=== PATIENT | male | born 1985 | race Caucasian/White ===

== ENCOUNTER 2020-08-09 02:15 | Emergency (ER) | payer OTHER, SELFPAY ==
[2020-08-09 02:20] VITALS: BP 132/77; PULSE 81; RESP 18; TEMP 36.6; O2SAT 98; BMI 25.9
--- NOTE | 2020-08-09 03:04 | ED.SKABFB ---
HPI - Skin/Abscess/Foreign Bdy General Chief complaint: Animal Bite Stated complaint: SPIDER BITE Time Seen by Provider: 08/09/20 02:52 Source: patient Mode of arrival: EMS Limitations: no limitations History of Present Illness HPI narrative: Patient homeless complaining of small cellulitic area on right leg thinks that had a spider bite few days ago which getting worse No fever no swelling of the leg except the area of questionable spider bite Related Data Previous Rx's Medication Instructions Recorded cephalexin [Keflex] 500 mg PO QID 10 Days #40 cap 08/09/20 doxycycline hyclate 100 mg PO BID #20 cap 08/09/20 Allergies Allergy/AdvReac Type Severity Reaction Status Date / Time aspirin Allergy Mild Unknown Verified 08/09/20 02:53 tramadol AdvReac Mild unknown Verified 08/09/20 02:53 Review of Systems Review of Systems: Yes all other systems are reviewed and are negative PMFSH Past Medical History Medical History Anxiety Depression Psychosis Social History Social History Advance Directives: No Advance Directives Information Provided: No Physical Exam Vital Signs: Vital Signs: Last Vital Signs Temp 97.9 F 08/09/20 02:20 Pulse 81 08/09/20 02:20 Resp 18 08/09/20 02:20 BP 132/77 08/09/20 02:20 Pulse Ox 98 08/09/20 02:20 Body Mass Index 25.9 Const: General: cooperative, healthy appearing and poor hygiene Orientation/consciousness: patient oriented x3 Resp: Effort & Inspection: normal respiratory effort Cardio: Rate: regular rate Neuro: General: patient oriented x3 and gait normal Extrem: Ankle/foot/toe images: 1. Cellulitic area with induration no fluctuance Course Course Course Narrative: Patient refuse I&D on the indurated area , refuse needle aspiration even. Will try to take antibiotics by mouth and report to the ER if gets worse Discharge Plan Discharge Clinical Impression: Insect bite Qualifiers: Encounter type: initial encounter Site of insect bite: lower leg Laterality: right Qualified Code(s): S80.861A - Insect bite (nonvenomous), right lower leg, initial encounter Patient Disposition: Home, Self-Care Instructions: Cellulitis (ED), Insect Bite or Sting (ED) Additional Instructions: Local care as advised. Take antibiotics as prescribed. Report to the ER worsening of the swelling or redness Prescriptions: New doxycycline hyclate 100 mg capsule 100 mg PO BID Qty: 20 RF: 0 cephalexin [Keflex] 500 mg capsule 500 mg PO QID 10 Days Qty: 40 RF: 0
== END 2020-08-09 03:15 | disposition home or self-care (01) ==
PROVIDERS: Emergency Provider Internal Medicine
DX: S80.861A Insect bite (nonvenomous), right lower leg, initial encounter (principal); W57.XXXA Bitten or stung by nonvenomous insect and other nonvenomous arthropods, initial encounter; L03.115 Cellulitis of right lower limb; Z59.0 Homelessness; Y93.9 Activity, unspecified; Y92.410 Unspecified street and highway as the place of occurrence of the external cause; Y99.9 Unspecified external cause status
CPT/HCPCS: 99283

== ENCOUNTER 2020-11-26 09:33 | Emergency (ER) | payer OTHER, SELFPAY ==
[2020-11-26 09:45] VITALS: RESP 22
[2020-11-26] MEDS: LORazepam 2 MG/ML VIAL IM (09:45)
[2020-11-26] MEDS: Haloperidol Lactate 5 MG/ML VIAL IM (09:45)
[2020-11-26 09:50] VITALS: RESP 22; BMI 29.1
[2020-11-26 10:00] VITALS: RESP 21
--- NOTE | 2020-11-26 10:00 | PC.NURSE ---
PT agitated upon arrival, uncooperative, threatening staff. Verbal deescalation ineffective. Provider in to speak with PT, PT continues to threaten staff. All attempts to deescalate patient were ineffective. Pt escalated further, pt placed in restraints, continues to scream and threaten staff.
[2020-11-26 10:15] VITALS: BP 131/82; PULSE 89; RESP 20; O2SAT 98
--- NOTE | 2020-11-26 10:23 | ECG_ITS ---
Test Reason : CARDIAC HISTORY Blood Pressure : / mmHG Vent. Rate : 087 BPM Atrial Rate : 087 BPM P-R Int : 128 ms QRS Dur : 082 ms QT Int : 376 ms P-R-T Axes : 049 082 060 degrees QTc Int : 452 ms Normal sinus rhythm Nonspecific ST-T changes Borderline ECG No previous ECGs available Referred By: Valentina Peña Electronically Signed By:Hugh Barnes
[2020-11-26 10:30] VITALS: BP 135/86; PULSE 89; RESP 16; O2SAT 97
[2020-11-26 10:45] VITALS: BP 137/87; PULSE 88; RESP 16; O2SAT 97
[2020-11-26 11:00] LABS: MANUAL DIFF FLAG NO
[2020-11-26 11:02] LABS: Basophils Percent Auto 0.3 % (0-2); Eosinophils Absolute Auto 0.1 X10*3/uL (0.0-0.4); Eosinophils Percent Auto 1.6 % (0-4); Hematocrit 40.8 % (42-52); Hemoglobin 13.3 g/dl (14.0-18.0); Imm Gran Abs Auto 0.02 X10*3/uL (0.00-0.03); Imm Gran Pct Auto 0.3 % (0.0-0.4); Lymphocytes Absolute Auto 1.7 X10*3/uL (1.2-4.9); Lymphocytes Percent Auto 24.6 % (20-40); Mean Corpuscular HGB Conc 32.6 g/dl (31.0-36.0); Mean Corpuscular Hemoglobin 28.9 pg (27.0-33.0); Mean Corpuscular Volume 88.7 fL (80-98); Mean Platelet Volume 8.8 fL (9.4-12.4); Monocytes Absolute Auto 0.6 X10*3/uL (0.1-1.2); Monocytes Percent Auto 8.7 % (2-11); Neutrophils Absolute Auto 4.5 X10*3/uL (2.0-8.3); Neutrophils Percent Auto 64.5 % (45-73); Platelet Count 280 X10*3/uL (160-400); Red Cell Distribution Width 13.2 % (11.0-16.0)
[2020-11-26 11:12] LABS: INTERNATIONAL NORM RATIO 1.1 (0.9-1.1); Prothrombin Time 12.6 SEC (10.8-13.0)
[2020-11-26 11:20] LABS: COVID-19 Test Negative (Negative); IDNOW Serial# 9DD0AD1C
[2020-11-26 11:29] LABS: Ethanol < 10 mg/dL
[2020-11-26 11:32] LABS: Magnesium 2.3 mg/dL (1.6-2.6)
[2020-11-26 11:33] LABS: Alanine Aminotransferase 338 U/L (0-40); Albumin Level 3.9 g/dL (3.5-5.0); Alkaline Phosphatase 79 U/L (39-117); Anion Gap 13 (12-20); Aspartate Amino Transferase 147 U/L (5-37); Bilirubin Total 0.5 mg/dL (0.0-1.0); Blood Urea Nitrogen 22 mg/dL (9-16); Calcium 8.9 mg/dL (8.4-10.2); Carbon Dioxide 29 mmol/L (22-29); Chloride 100 mmol/L (96-108); Creatinine Clr Calc Pharmacy 91.8; Estimated Glomerular Filt Rate > 60; Glucose Random 113 mg/dL (60-115); Lipase 24 U/L (8-78); Potassium 3.6 mmol/L (3.3-5.1); Sodium 138 mmol/L (135-145)
--- NOTE | 2020-11-26 12:43 | PC.NURSE ---
NEHEMIAS faxed and called, confirmed with Racquel
--- NOTE | 2020-11-26 13:32 | ED_ITS ---
HPI - Psych General Chief Complaint: Psychiatric Symptoms Stated Complaint: AGITATED CRISIS Time Seen by Provider: 11/26/20 09:52 Source: patient and EMS Mode of arrival: EMS Limitations: other (Poor historian) History of Present Illness HPI Narrative: 35-year-old male with a past medical history of anxiety disorder, depression, psychosis presenting to the ED via EMS after he was found outside of [facility] having an altercation with the staff there due to not wearing a mass therefore they called police and police on scene called EMS due to the patient was very aggressive. Patient was making SI statements. On arrival patient is very aggressive calling everyone names bitch stupid asshole , was trying to spit on some staff/security, demanding to be let out of here. He denies any drug usage although they found to needles in his belongings. He denies any alcohol usage. He reports he is not homeless that he lives with a friend and the friend's grandmother. Denying any SI/HI to me. Although he was speaking to Lucifer therefore possibly auditory and visual hallucinations. MD complaint: suicidal ideation, feels depressed and anxiety Onset (ago): minute(s) (Prior to arrival) Duration: constant Related Data Previous Rx's Medication Instructions Recorded cephalexin [Keflex] 500 mg PO QID 10 Days #40 cap 08/09/20 doxycycline hyclate 100 mg PO BID #20 cap 08/09/20 Allergies Allergy/AdvReac Type Severity Reaction Status Date / Time aspirin Allergy Mild Unknown Verified 08/09/20 02:53 tramadol AdvReac Mild unknown Verified 08/09/20 02:53 Review of Systems Review of Systems: Constitutional : No Fever, No Chills ENT/Mouth : No Ear Pain, No Nasal Congestion, No sore throat Eyes: No Eye Pain, No Swelling, No Redness Cardiovascular : No Chest Pain, No SOB Respiratory : No Cough, No Sputum, No Dyspnea Gastrointestinal : No ingestions, No Nausea, No Vomiting, No Diarrhea, No Hematochezia, No Melena Genitourinary : No Dysuria, No Urinary Frequency, No Hematuria Musculoskeletal : No Myalgias Skin : No Skin Lesions, No rash Neuro : No Weakness, No Numbness, No Paresthesias, No Dizziness, No Headache Psych : + Anxiety, + Depression, + SI, + AVH, No HI, No thoughts of self injury Heme/Lymph: No Lymphadenopathy Endocrine : No Polyuria, No Polydipsia Yes all other systems are reviewed and are negative FOR[facility]LY [facility], [facility] Past Medical History Attestation statement: The following information was validated with the patient. Medical History Anxiety Depression Psychosis Social History Social History Alcohol intake: unknown Smoking Status: Unknown if ever smoked Use of substances other than those prescribed or required for medical reasons: Refusing to respond Last Used Substance: Unknown Physical Exam Vital Signs: Vital Signs: Last Vital Signs Pulse 88 11/26/20 10:45 Resp 16 11/26/20 10:45 BP 137/87 11/26/20 10:45 Pulse Ox 97 11/26/20 10:45 Body Mass Index 29.1 vital signs have been reviewed as normal and appeared to be correct. Blood pressure normal. Heart rate normal. Respiration rate . Temperature normal. Oxygen saturation normal. Appearance: Alert. Oriented X3. No acute distress. Head: Normal external exam. Normocephalic. Atraumatic. No [place] signs noted. No raccoon eyes noted Eyes: PERRLA. EOMI. Conjunctiva and sclera normal. Eyelids normal. ENT: EAC normal. TM's Normal. Pharynx normal. Uvula midline. Moist mucous membranes. No trismus noted. No drooling noted. No muffled voice noted. Neck: Normal inspection. Neck supple. FROM. No adenopathy. Thyroid Normal. No meningeal signs. No neck mass noted. CVS: Normal heart rate and rhythm. Heart sound normal. No murmurs noted. Pulses normal throughout. Respiratory: No respiratory distress. Painless inspiration. Breath sounds normal. No wheezes/rales/rhonchi noted. Chest nontender. No accessory muscle usage noted or decreased air movement noted. Abdomen: Soft and nontender. Bowel sounds normal in all 4 quadrants. No distention noted. No organomegaly noted. No visible injury noted. Back: No CVA tenderness. Full range of motion noted. Skin: Track holt noted to right forearm no signs of infection the rest of the Skin is warm and dry. Normal skin color. Normal skin turgor. No rashes/lesions/lacerations noted. Extremities: No lower extremity edema. Extremities exhibit normal range of motion. Extremities nontender. Neuro: Oriented X 3. No motor deficit. No sensory deficit. Reflexes normal. Psych: Appearance grossly normal, although patient's clothes are dirty and odorous, has a normal mental status although has pressured speech. Normal movement. Patient appears very sad, anxious along with depressed. Is not cooperative. Does not have normal thought process/does not have normal thought content. Does not have good insight or judgment. Course Course Course Narrative: 12pm - labs reviewed and patient with a BUN of 22. AST/ALT at 147/338 otherwise all other labs are within normal limits. - COVID swab negative on 11/26/2020. - otherwise patient is medically cleared at this time. Physician observation was started at this time because the patient needed more time to be evaluated by N for the need for psychiatric admission. Will continue to monitor. MDM - Psych MDM Narrative Medical decision making narrative: 10am - 35-year-old male presenting via EMS/PD after he was found outside of [facility] having an altercation with the staff then he became aggressive with PD and EMS therefore they sent him here for further evaluation and treatment due to he was making SI statements to them. - on arrival patient is very aggressive trying to spit at staff/security. Not in any acute distress. No focal neuro deficits noted. Track holt noted to right forearm otherwise no signs of self-injury holt. Although patient appears to be having auditory/visual hallucinations. Therefore patient had to be medically and physically restrained. - Plan: Labs. Then obtain a N evaluation once medically cleared. Medical Records Attestation: I reviewed the patient's medical records. Lab Data Attestation: I reviewed the patient's lab results. Result diagrams: 11/26/20 10:54 11/26/20 10:54 Labs: Lab Results 11/26/20 11/26/20 11/26/20 Range/Units 10:54 10:54 10:54 WBC 7.0 (4.8-10.8) X10*3/uL RBC 4.60 (4.60-5.80) X10*6/uL Hgb 13.3 L (14.0-18.0) g/dl Hct 40.8 L (42-52) % MCV 88.7 (80-98) fL MCH 28.9 (27.0-33.0) pg MCHC 32.6 (31.0-36.0) g/dl RDW 13.2 (11.0-16.0) % Plt Count 280 (160-400) X10*3/uL MPV 8.8 L (9.4-12.4) fL Immature Gran % (Auto) 0.3 (0.0-0.4) % Neut % (Auto) 64.5 (45-73) % Lymph % (Auto) 24.6 (20-40) % [place] % (Auto) 8.7 (2-11) % Eos % (Auto) 1.6 (0-4) % Baso % (Auto) 0.3 (0-2) % Lymph # (Auto) 1.7 (1.2-4.9) X10*3/uL [place] # (Auto) 0.6 (0.1-1.2) X10*3/uL Eos # (Auto) 0.1 (0.0-0.4) X10*3/uL Baso # (Auto) 0.0 (0.0-0.2) X10*3/uL Abs Immat Gran (auto) 0.02 (0.00-0.03) X10*3/uL Absolute Neuts (auto) 4.5 (2.0-8.3) X10*3/uL Absolute Nucleated RBC 0.000 (0.0-0.012) X10*3/uL Nucleated RBC % (auto) 0.0 (0.0-0.2) /100WBC Hold Purple Top SEE NOTE PT 12.6 (10.8-13.0) SEC INR 1.1 (0.9-1.1) Sodium (135-145) mmol/L Potassium (3.3-5.1) mmol/L Chloride (96-108) mmol/L Carbon Dioxide (22-29) mmol/L Anion Gap (12-20) BUN (9-16) mg/dL Creatinine (0.5-1.4) mg/dL Estim Creat Clear Calc Estimated GFR Random Glucose (60-115) mg/dL Calcium (8.4-10.2) mg/dL Magnesium (1.6-2.6) mg/dL Total Bilirubin (0.0-1.0) mg/dL AST (5-37) U/L ALT (0-40) U/L Alkaline Phosphatase (39-117) U/L Total Protein (6.5-8.0) g/dL Albumin (3.5-5.0) g/dL Lipase (8-78) U/L Ethyl Alcohol mg/dL COVID-19 (TOO) (Negative) COVID-19 Clin Com 11/26/20 11/26/20 11/26/20 Range/Units 10:54 10:54 10:54 WBC (4.8-10.8) X10*3/uL RBC (4.60-5.80) X10*6/uL Hgb (14.0-18.0) g/dl Hct (42-52) % MCV (80-98) fL MCH (27.0-33.0) pg MCHC (31.0-36.0) g/dl RDW (11.0-16.0) % Plt Count (160-400) X10*3/uL MPV (9.4-12.4) fL Immature Gran % (Auto) (0.0-0.4) % Neut % (Auto) (45-73) % Lymph % (Auto) (20-40) % [place] % (Auto) (2-11) % Eos % (Auto) (0-4) % Baso % (Auto) (0-2) % Lymph # (Auto) (1.2-4.9) X10*3/uL [place] # (Auto) (0.1-1.2) X10*3/uL Eos # (Auto) (0.0-0.4) X10*3/uL Baso # (Auto) (0.0-0.2) X10*3/uL Abs Immat Gran (auto) (0.00-0.03) X10*3/uL Absolute Neuts (auto) (2.0-8.3) X10*3/uL Absolute Nucleated RBC (0.0-0.012) X10*3/uL Nucleated RBC % (auto) (0.0-0.2) /100WBC Hold Purple Top PT (10.8-13.0) SEC INR (0.9-1.1) Sodium 138 (135-145) mmol/L Potassium 3.6 (3.3-5.1) mmol/L Chloride 100 (96-108) mmol/L Carbon Dioxide 29 (22-29) mmol/L Anion Gap 13 (12-20) BUN 22 H (9-16) mg/dL Creatinine 1.10 (0.5-1.4) mg/dL Estim Creat Clear Calc 91.8 Estimated GFR > 60 Random Glucose 113 (60-115) mg/dL Calcium 8.9 (8.4-10.2) mg/dL Magnesium 2.3 (1.6-2.6) mg/dL Total Bilirubin 0.5 (0.0-1.0) mg/dL AST 147 H (5-37) U/L ALT 338 H (0-40) U/L Alkaline Phosphatase 79 (39-117) U/L Total Protein 7.0 (6.5-8.0) g/dL Albumin 3.9 (3.5-5.0) g/dL Lipase 24 (8-78) U/L Ethyl Alcohol mg/dL COVID-19 (TOO) Negative (Negative) COVID-19 Clin Com See Note 11/26/20 Range/Units 10:54 WBC (4.8-10.8) X10*3/uL RBC (4.60-5.80) X10*6/uL Hgb (14.0-18.0) g/dl Hct (42-52) % MCV (80-98) fL MCH (27.0-33.0) pg MCHC (31.0-36.0) g/dl RDW (11.0-16.0) % Plt Count (160-400) X10*3/uL MPV (9.4-12.4) fL Immature Gran % (Auto) (0.0-0.4) % Neut % (Auto) (45-73) % Lymph % (Auto) (20-40) % [place] % (Auto) (2-11) % Eos % (Auto) (0-4) % Baso % (Auto) (0-2) % Lymph # (Auto) (1.2-4.9) X10*3/uL [place] # (Auto) (0.1-1.2) X10*3/uL Eos # (Auto) (0.0-0.4) X10*3/uL Baso # (Auto) (0.0-0.2) X10*3/uL Abs Immat Gran (auto) (0.00-0.03) X10*3/uL Absolute Neuts (auto) (2.0-8.3) X10*3/uL Absolute Nucleated RBC (0.0-0.012) X10*3/uL Nucleated RBC % (auto) (0.0-0.2) /100WBC Hold Purple Top PT (10.8-13.0) SEC INR (0.9-1.1) Sodium (135-145) mmol/L Potassium (3.3-5.1) mmol/L Chloride (96-108) mmol/L Carbon Dioxide (22-29) mmol/L Anion Gap (12-20) BUN (9-16) mg/dL Creatinine (0.5-1.4) mg/dL Estim Creat Clear Calc Estimated GFR Random Glucose (60-115) mg/dL Calcium (8.4-10.2) mg/dL Magnesium (1.6-2.6) mg/dL Total Bilirubin (0.0-1.0) mg/dL AST (5-37) U/L ALT (0-40) U/L Alkaline Phosphatase (39-117) U/L Total Protein (6.5-8.0) g/dL Albumin (3.5-5.0) g/dL Lipase (8-78) U/L Ethyl Alcohol < 10 mg/dL COVID-19 (TOO) (Negative) COVID-19 Clin Com ECG Data Attestation: I personally reviewed and interpreted this ECG as follows: ECG interpretation date: 11/26/20 ECG interpretation time: 10:42 Interpretation: Normal sinus rhythm and strictly rate of 87 with a normal NE interval normal QRS duration normal QT/QTC interval. No acute ischemic changes are noted. Discharge Plan Discharge Clinical Impression: Anxiety, Depression, Psychosis, Suicidal ideation Prescriptions: No Action doxycycline hyclate 100 mg capsule 100 mg PO BID Qty: 20 RF: 0 cephalexin [Keflex] 500 mg capsule 500 mg PO QID 10 Days Qty: 40 RF: 0
--- NOTE | 2020-11-27 02:06 | PC.NURSE ---
NEHEMIAS completed assessment, disposition is section 12 inpatient bed search for stabilization, patient and provider aware,
[2020-11-27 04:52] LABS: Glucose Urine UA NEG (NEG); Leukocyte Esterase Urine NEG (NEG); Nitrite Urine NEG (NEG); PH 7.5 (5.0-8.0); Urine Blood NEG (NEG); Urine Ketones NEG (NEG); Urine Protein NEG (NEG-TRACE)
[2020-11-27 04:53] LABS: Appearance Urine HAZY; Color Urine YELLOW
[2020-11-27 05:17] LABS: Amphetamine Screen Urine Not Detected (Not Detect); Barbiturates, Urine Not Detected (Not Detect); Benzodiazepines Screen Urine Not Detected (Not Detect); Cannabinoid Screen Urine Not Detected (Not Detect); Cocaine Screen Urine POSITIVE (Not Detect); Opiate Screen Urine POSITIVE (Not Detect); Phencyclidine Screen Urine Not Detected (Not Detect)
[2020-11-27 06:00] VITALS: BP 129/88; PULSE 89; RESP 18; TEMP 37.1; O2SAT 96
[2020-11-27 09:02] VITALS: BP 119/90; PULSE 91; TEMP 36.6; O2SAT 98
[2020-11-27] MEDS: LORazepam 1 MG TABLET PO ×4 (09:50→20:48)
--- NOTE | 2020-11-27 10:59 | PC.NURSE ---
Report received. Pt resting in bed at current, no complaints at this time, calm and cooperative, continues to be a section 12 bed search
--- NOTE | 2020-11-27 11:06 | P.CNPS_ITS ---
History of Present Illness Date of Service: 11/27/20 Chief Complaint: aggressive agitation; opiate/cocaine abuse Requesting physician: Andre Magaña Discussed with referring provider: Yes (ER POD Team) Sources of Information: patient interviewed and chart reviewed HPI Narrative: 35 yo male, to ER via police after being found in the community at a local store having an altercation about wearing a mask. He became verbally and physically aggressive with police, needles were found on his person and he was observed to be self-dialoguing with Lucifer. Pt required physical and medication restraint in the ER. Today, team requests medication review. Pt is cooperative with eval but a vague, weak historian. He reports he was brought in for doing nothing . Discussed crisis eval and bed search for pt and he could not further elaborate on what happened, Reviewed medication history. Reports hx of anxiety, depression (denies psychosis however record indicates a positive history). Reports off medications for over 1 year. Denies hx of martín, denies voices, visions or other perceptual sx. Denies fears or concerns regarding safety. Acknowledges SI-passive without plan or intent and acknowledges some loss of time last evening with memory (tox positive for opiates, cocaine). Reports hx of Seroquel, Xanax, Klonopin. Denies other medications history. Diagnostics HGB 12.3, HCT 40.8, MPV 8.8 BUN 22, AST 147, ALT 338, EKG Borderline with QTc 452. Past Psychiatric History: IP: Denies OP: Denies current alliances Trials: Klonopin, Seroquel, xanax Medical Evaluation Reviewed: Yes Personal & Social History: Pt reports he is homeless, currently not working. 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.) Reports behavioral changes Psychiatric: Reports behavioral changes, Reports irritability, Reports mood swings, Reports paranoia, Reports hallucinations and Reports suicidal ideation (positive on admission, denies current SI) [facility] Medical History (Updated 11/27/20 @ 11:35 by Jaquelin Siddiqui, [place]) Anxiety Depression Psychosis Substance History: Denies- Tox positive for opiates, cocaine Diagnostics Vital Signs (24Hr): Vital Signs - 24 hr 11/27/20 06:00 11/27/20 09:02 Temperature 98.8 F 97.9 F Pulse Rate 89 91 Respiratory Rate 18 Blood Pressure 129/88 119/90 H Pulse Oximetry 96 98 Body Mass Index 29.1 Labs Results: 11/26/20 10:54 11/26/20 10:54 Labs: Laboratory Results - last 48 hr 11/26/20 11/26/20 11/26/20 10:54 10:54 10:54 WBC 7.0 RBC 4.60 Hgb 13.3 L Hct 40.8 L MCV 88.7 MCH 28.9 MCHC 32.6 RDW 13.2 Plt Count 280 MPV 8.8 L Immature Gran % (Auto) 0.3 Neut % (Auto) 64.5 Lymph % (Auto) 24.6 [place] % (Auto) 8.7 Eos % (Auto) 1.6 Baso % (Auto) 0.3 Lymph # (Auto) 1.7 [place] # (Auto) 0.6 Eos # (Auto) 0.1 Baso # (Auto) 0.0 Abs Immat Gran (auto) 0.02 Absolute Neuts (auto) 4.5 Absolute Nucleated RBC 0.000 Nucleated RBC % (auto) 0.0 Hold Purple Top SEE NOTE PT 12.6 INR 1.1 Sodium Potassium Chloride Carbon Dioxide Anion Gap BUN Creatinine Estim Creat Clear Calc Estimated GFR Random Glucose Calcium Magnesium Total Bilirubin AST ALT Alkaline Phosphatase Total Protein Albumin Lipase Urine Color Urine Appearance Urine pH Ur Specific [place] Urine Protein Urine Glucose (UA) Urine Ketones Urine Blood Urine Nitrite Ur Leukocyte Esterase Urine Opiates Screen Ur Barbiturates Screen Ur Phencyclidine Scrn Ur Amphetamines Screen U Benzodiazepines Scrn Urine Cocaine Screen U Marijuana (THC) Screen Ethyl Alcohol COVID-19 (TOO) COVID-19 Clin Com 11/26/20 11/26/20 11/26/20 10:54 10:54 10:54 WBC RBC Hgb Hct MCV MCH MCHC RDW Plt Count MPV Immature Gran % (Auto) Neut % (Auto) Lymph % (Auto) [place] % (Auto) Eos % (Auto) Baso % (Auto) Lymph # (Auto) [place] # (Auto) Eos # (Auto) Baso # (Auto) Abs Immat Gran (auto) Absolute Neuts (auto) Absolute Nucleated RBC Nucleated RBC % (auto) Hold Purple Top PT INR Sodium 138 Potassium 3.6 Chloride 100 Carbon Dioxide 29 Anion Gap 13 BUN 22 H Creatinine 1.10 Estim Creat Clear Calc 91.8 Estimated GFR > 60 Random Glucose 113 Calcium 8.9 Magnesium 2.3 Total Bilirubin 0.5 AST 147 H ALT 338 H Alkaline Phosphatase 79 Total Protein 7.0 Albumin 3.9 Lipase 24 Urine Color Urine Appearance Urine pH Ur Specific [place] Urine Protein Urine Glucose (UA) Urine Ketones Urine Blood Urine Nitrite Ur Leukocyte Esterase Urine Opiates Screen Ur Barbiturates Screen Ur Phencyclidine Scrn Ur Amphetamines Screen U Benzodiazepines Scrn Urine Cocaine Screen U Marijuana (THC) Screen Ethyl Alcohol COVID-19 (TOO) Negative COVID-19 Clin Com See Note 11/26/20 11/27/20 11/27/20 10:54 04:42 04:42 WBC RBC Hgb Hct MCV MCH MCHC RDW Plt Count MPV Immature Gran % (Auto) Neut % (Auto) Lymph % (Auto) [place] % (Auto) Eos % (Auto) Baso % (Auto) Lymph # (Auto) [place] # (Auto) Eos # (Auto) Baso # (Auto) Abs Immat Gran (auto) Absolute Neuts (auto) Absolute Nucleated RBC Nucleated RBC % (auto) Hold Purple Top PT INR Sodium Potassium Chloride Carbon Dioxide Anion Gap BUN Creatinine Estim Creat Clear Calc Estimated GFR Random Glucose Calcium Magnesium Total Bilirubin AST ALT Alkaline Phosphatase Total Protein Albumin Lipase Urine Color YELLOW Urine Appearance HAZY Urine pH 7.5 Ur Specific [place] 1.020 Urine Protein NEG Urine Glucose (UA) NEG Urine Ketones NEG Urine Blood NEG Urine Nitrite NEG Ur Leukocyte Esterase NEG Urine Opiates Screen POSITIVE H Ur Barbiturates Screen Not Detected Ur Phencyclidine Scrn Not Detected Ur Amphetamines Screen Not Detected U Benzodiazepines Scrn Not Detected Urine Cocaine Screen POSITIVE H U Marijuana (THC) Screen Not Detected Ethyl Alcohol < 10 COVID-19 (TOO) COVID-19 Clin Com Mental Status Exam Mental Status Exam Patient Appearance: Disheveled Patient Orientation: Person, Place and Situation Level of Consciousness: Alert Patient Behavior: Guarded, Talkative, Cooperative, Suspicious, Anxious, Fearful, Resistive to Care, Avoidant, Fatigued, Distractible, Isolative, Good Eye Contact and Impulsive Mood Description: Suspicious, Withdrawn, Constricted, Hostile, Angry and Apprehensive Affect Description: Suspicious, Withdrawn, Constricted, Hostile, Anxious, Angry, Nervous and Apprehensive Patient Cognition Impaired: No Ability to Follow Directions: Fair Speech Pattern: Spontaneous Speech, Soft-Spoken and Delayed Memory Description: Episodic Impaired Hallucinations: Auditory (denies-observed in community self-dialogueing with Lucifer) Thought Process: Illogical and Evasive Thought Content: positive for [place], positive for Circumstantial, positive for Poverty of Content, positive for Tangential and positive for Suicidal Ideation (denies currently, verbalized in community) Depressive Symptoms: Diff. Making Decisions, Crying Spells, Thoughts of /Suicide and Loss of Energy Judgement: Poor Medications Allergies Allergies Allergy/AdvReac Type Severity Reaction Status Date / Time aspirin Allergy Mild Unknown Verified 08/09/20 02:53 tramadol AdvReac Mild unknown Verified 08/09/20 02:53 Assessment & Plan Assessment & Plan (1) Opioid use disorder: Status: Acute Code(s): F11.99 - Opioid use, unspecified with unspecified opioid-induced disorder Recommendations: Tox positive. CIWA Pt reports inconsistent use (2) Cocaine use disorder: Status: Acute Code(s): F14.10 - Cocaine abuse, uncomplicated Recommendations: Tox positive Pt reports inconsistent use May have contributed to presenting behavior. (3) Other psychoactive substance use, unspecified with psychoactive substance- induced mood disorder: Status: Acute Code(s): F19.94 - Other psychoactive substance use, unspecified with psychoactive substance-induced mood disorder Recommendations: Pt required physical and medication restraint in the ER. 1. Ativan 1 mg q 4 hours as needed 2. Olanzapine 5 mg bid 3. Depakote 250 mg bid (4) LFT elevation: Status: Acute Code(s): R79.89 - Other specified abnormal findings of blood chemistry Recommendations: AST 147 ALT 338 Amylase, Lipase, Hepatitis panel (5) Suicidal ideation: Status: Acute Code(s): R45.851 - Suicidal ideations Recommendations: Pt verbalized SI on admission, Today denies SI, denies plan or intent (6) Psychosis: Status: Acute Code(s): F29 - Unspecified psychosis not due to a substance or known physiological condition Recommendations: -Self-dialogue sx in community, required physical and medicine restraint -Olanzapine 5 mg bid and prn Greater than 50% of the session was spent on counseling and/or coordination of care Patient educated on: substance abuse and therapeutic strategies Informed Consent: understands and further education needed
--- NOTE | 2020-11-27 12:02 | PC.NURSE ---
Refused scheduled doses of depakote and zyprexa, only wanted PRN ativan, which was given as ordered. Pt requesting subutex for body ache r/t withdrawal. Scoring 2 on the COWS.
[2020-11-27 13:46] LABS: Amylase 32 U/L (28-100)
--- NOTE | 2020-11-27 16:16 | PC.NURSE ---
Pt asleep at current, no signs of distress, RR even and unlabored.
[2020-11-27 16:48] VITALS: BP 134/85; PULSE 111; RESP 20; TEMP 37.3; O2SAT 98
--- NOTE | 2020-11-27 18:15 | PC.NURSE ---
Pt resting comfortably at this time, no signs of distress.
--- NOTE | 2020-11-27 19:13 | PC.NURSE ---
Report received. PT is sleeping in bed. Respirations even and unlabored. PT is inpatient bed search.
[2020-11-27 20:48] VITALS: BP 134/86; PULSE 119
[2020-11-27] MEDS: Divalproex Sodium 250 MG TABLET.DR PO (20:48)
[2020-11-27] MEDS: OLANZapine 5 MG TABLET PO (20:48)
[2020-11-27] MEDS: cloNIDine HCL 0.1 MG TABLET PO (20:48)
[2020-11-28] VITALS (12 sets, daily range): BP systolic 136–147; BP diastolic 93–108; PULSE 86–110; RESP 16–22; TEMP 35.9–36.9; O2SAT 92–100
[2020-11-28 05:02] LABS: HBS Num1 > 1000.00 mIU/mL (0-7.99); HBc Num1 0.51 S/CO (0.00-0.79); Hepatitis A Antibody IgM 0.24 Index (0-0.79); Hepatitis B Core Antibody Nonreactive (Nonreactive); ~HepC Num1 17.27 S/CO (0.00-0.79); ~Hepatitis A Antibody IgM Nonreactive (Nonreactive); ~Hepatitis B Surface Antibody REACTIVE (Nonreactive); ~Hepatitis C Antibody Reactive (Nonreactive)
[2020-11-28 05:03] LABS: HBsAGNum1 0.13 S/CO (0.00-0.99); Hepatitis B Surface Antigen Negative (Negative)
--- NOTE | 2020-11-28 06:58 | PC.NURSE ---
Report recieved. PT currently walking around unit, social with peers, calm and coopertive. PT reporting that the ativan dose he is on is not helping, requesting increased dose or klonopin. Pt asking about plan of care, plan explained, pt is inpatient bedsearch.
[2020-11-28] MEDS: LORazepam 1 MG TABLET PO (07:51)
--- NOTE | 2020-11-28 08:51 | PC.NURSE ---
PT declined AM medications states they make his drowsy, states he would be willing to take his medications at night.
[2020-11-28] MEDS: clonazePAM 1 MG TABLET PO ×3 (09:33→21:41)
--- NOTE | 2020-11-28 09:52 | PC.NURSE ---
PT reported blurry vision and double vision. Provider notified. Visual acuity assessed and POC assessed. Provider aware.
[2020-11-28 09:55] LABS: Glucose, Whole Blood 118 mg/dL (60-115)
--- NOTE | 2020-11-28 12:14 | PC.NURSE ---
PT irritable, requesting to leave frequently, asking to go outside to smoke frequently. PT difficult to redirect, offered and declined PRN medication. Currently laying in bed.
--- NOTE | 2020-11-28 13:37 | PC.NURSE ---
PT agitated, pacing and raising his voice at times. Difficult to redirect. Pt offered and declined PRN medication. PT currently sitting on floor in community area.
--- NOTE | 2020-11-28 14:11 | PC.NURSE ---
PT screaming and swearing at staff. Verbal redirection ineffective. PT intrusive with other patients, demanding medication. PT asking to go into his locker, states he just wants a cigarette. Security on unit.
[2020-11-28] MEDS: OLANZapine 10 MG VIAL 5 MG IM (14:22)
--- NOTE | 2020-11-28 14:26 | PC.NURSE ---
PT continued yelling at staff, threatening, growling. PT escorted to his room, unable to verbally deescalate. PT medicated per EMAR.
[2020-11-28] MEDS: Nicotine 14 MG PATCH.TD24 TRANSDERMA (15:28)
--- NOTE | 2020-11-28 17:01 | PC.NURSE ---
BHN at bedside for MSU
[2020-11-28] MEDS: LORazepam 2 MG/ML VIAL IM (19:40)
[2020-11-28] MEDS: Haloperidol Lactate 5 MG/ML VIAL IM (19:41)
--- NOTE | 2020-11-28 19:48 | PC.NURSE ---
Per report patient was chemically restraint with olanzapine with not much effect, patient loud, disruptive, threatening staff member, manic, difficult to redirect, verbally abusive to staff member, grandiose, provider notified/ordered Ativan 2 mg IM and Haldol 5 mg IM administered at 1941 in presence of security, patient did not require to hold for IM administration, patient continuos to be loud, refused his vital sign assessment, will continue to monitor.
--- NOTE | 2020-11-28 20:37 | PC.NURSE ---
Patient s/p chemical restraint, appears sleeping, night time med not administered at this time, will continue to monitor.
[2020-11-28] MEDS: OLANZapine 5 MG TABLET PO (20:56)
[2020-11-28] MEDS: Divalproex Sodium 250 MG TABLET.DR PO (20:56)
[2020-11-29] VITALS (8 sets, daily range): BP systolic 119–142; BP diastolic 74–101; PULSE 75–109; RESP 17–20; TEMP 36.6–37.2; O2SAT 97–99
--- NOTE | 2020-11-29 07:11 | PC.NURSE ---
Report received from YAMEL Powell. Pt awake, alert, no concerns reported at this time. Pt using telephone. Required reminder to keep voice down, redirectable.
[2020-11-29] MEDS: Divalproex Sodium 250 MG TABLET.DR PO ×2 (07:28→20:06)
[2020-11-29] MEDS: OLANZapine 5 MG TABLET PO ×2 (07:32→20:06)
[2020-11-29] MEDS: clonazePAM 1 MG TABLET PO ×3 (07:33→17:28)
--- NOTE | 2020-11-29 07:37 | PC.NURSE ---
Pt awake, loud at times, initially declining medications but then accepted. Pt requesting adderall frequently, pt then requesting suboxone. Pt aware that only MD can prescribe and redirected.
--- NOTE | 2020-11-29 08:59 | PC.NURSE ---
Pt continues to be intrusive, requesting ativan, valium, adderall. Reviewed all options with provider. Pt offered zyprexa as PRN for agitation and declined. Pt declining tylenol, motrin for aching, states he only wants xanax or valium.
[2020-11-29] MEDS: cloNIDine HCL 0.1 MG TABLET PO (09:08)
--- NOTE | 2020-11-29 09:10 | PC.NURSE ---
Pt reporting withdrawal symptoms of aching= back ache. Pt declining tylenol or ibuprofen but accepted clonidine.
--- NOTE | 2020-11-29 10:28 | PC.NURSE ---
Pt continues to be intrusive, requiring frequent redirection which he accepts w/ delay.
[2020-11-29] MEDS: Acetaminophen 325 MG TABLET 650 MG PO (11:40)
--- NOTE | 2020-11-29 12:13 | PC.NURSE ---
Report received. Pt currently watching TV in the common area. Calm, no complaints at this time.
--- NOTE | 2020-11-29 15:14 | PC.NURSE ---
Demanding adderall and valium, this place is no fun, [facility] is way more fun, you guys are just walking around like zombies, you aren't fun
--- NOTE | 2020-11-29 17:34 | PC.NURSE ---
Continues to request PRN klonopin for what pt reports as severe anxiety, unwilling to try clonidine or zyprexa PRN medications that are ordered, those meds don't do shit .
[2020-11-29] MEDS: ALPRAZolam 0.5 MG TABLET PO (20:06)
--- NOTE | 2020-11-29 20:10 | PC.NURSE ---
Patient is very hyper verbal, loud, disruptive, intrusive, demanding medication, patient continues to presents medication seeking behavior, spoke with provider asked for Xanax, provider ordered Xanax 0.5 mg, when explained Xanax dose he is getting, patient got so agitated started bitching about provider and staff member for being not nice with him, keeping him against his will and he will frantz everyone, finally agreed to take his night time medication, will continue to monitor.
--- NOTE | 2020-11-29 20:35 | PC.NURSE ---
Patient behavior has been escalating over being to long in the POD, patient was informed so many times about the bed search process, asking staff member to let him go and stated staying here ED POD is torturing experience, patient is verbally abusive to staff member, out of frustration patient jumped on the staff member, grabbed and pulled ID credential from the staff, ran towards exit, successfully flashed the ID badge, and attempted to barged out but patient was stopped at the exit door, security came put the patient on physical hold, provider notified/ordered Ativan 2 mg IM, Haldol 5 mg IM and Benadryl 50 mg IM, administered as ordered and patient was put on 1:1 for observation, patient continues swearing at staff member, VSS, will continue to monitor.
[2020-11-29] MEDS: Haloperidol Lactate 5 MG/ML VIAL IM (20:46)
[2020-11-29] MEDS: LORazepam 2 MG/ML VIAL IM (20:46)
[2020-11-29] MEDS: diphenhydrAMINE HCL 50 MG/ML VIAL IM (20:47)
--- NOTE | 2020-11-29 21:50 | PC.NURSE ---
Patient physical hold discontinued, no injury noted, extremities mobility intact, patient advised to stay in room for safety, denied distress, patient snacked and refreshed, now in his bed, will continue to monitor
[2020-11-30 00:09] VITALS: BP 138/95; PULSE 90; RESP 16; TEMP 36.5; O2SAT 99
--- NOTE | 2020-11-30 07:09 | PC.NURSE ---
Report received from YAMEL Powell. Pt awake, pacing slowly, in behavioral control at this time, no concerns reported.
[2020-11-30] MEDS: Divalproex Sodium 250 MG TABLET.DR PO (07:22)
[2020-11-30] MEDS: OLANZapine 5 MG TABLET PO (07:23)
[2020-11-30] MEDS: clonazePAM 1 MG TABLET PO (07:23)
--- NOTE | 2020-11-30 08:31 | PC.NURSE ---
Pt accepted am medications as ordered. Reviewed crisis process and medications as ordered. Pt initially requesting xanax- notified that xanax is not ordered. Pt accepted information as given.
--- NOTE | 2020-11-30 10:59 | PC.NURSE ---
Pt sleeping, now awake- visitor dropped food off for pt. Pt appears less agitated, less intrusive, more directable, conversing appropriately w/ staff.
--- NOTE | 2020-11-30 12:14 | PC.NURSE ---
Pt continues to perseverate re: medications, requesting xanax several times, requesting to see provider- Otis mcallister.
--- NOTE | 2020-11-30 12:52 | PC.NURSE ---
Pt seen by Jostin, pt requesting to leave, denies SI. Continues to be focused on medications.
--- NOTE | 2020-11-30 14:28 | PC.NURSE ---
Pt seen by BHN and provider- may be discharged. Pt very pleased with information. Pt continues to deny SI, states he is safe to be discharged, is very excited. Reviewed instructions w/ pt- pt verbalized understanding, aware that he has a prescription at [facility] which he should bean picker when discharged.
== END 2020-11-30 14:50 | disposition home or self-care (01) ==
PROVIDERS: Clinical Nurse Specialist Psychiatric/Mental Health, Adult; Physician Assistant Medical; Emergency Provider Emergency Medicine
DX: F33.1 Major depressive disorder, recurrent, moderate (principal); R45.851 Suicidal ideations; R79.89 Other specified abnormal findings of blood chemistry; F11.99 Opioid use, unspecified with unspecified opioid-induced disorder; F14.10 Cocaine abuse, uncomplicated; F41.1 Generalized anxiety disorder; F43.0 Acute stress reaction; Z20.822 Contact with and (suspected) exposure to COVID-19; Z79.899 Other long term (current) drug therapy; Z59.0 Homelessness; Z71.51 Drug abuse counseling and surveillance of drug abuser
CPT/HCPCS: 36415; 80053; 80307; 80320; 81003; 82150; 82947; 83690; 83735; 85025; 85610; 86704; 86706; 86709; 86803; 87340; 87635; 93005; 96372; 99285; J1200; J2060

== ENCOUNTER 2021-01-12 20:47 | Emergency (ER) | payer OTHER, SELFPAY ==
[2021-01-12 20:59] VITALS: BP 120/90; PULSE 100; O2SAT 95; BMI 22.9
--- NOTE | 2021-01-12 21:11 | PC.NURSE ---
Pt was evaled by Rakesh PEREZ. 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 pt stated i don't know why i'm here i jsut want my 7 dollars . Pt denies SI/HI. Pt escorted out by security.
--- NOTE | 2021-01-12 21:13 | ED_ITS ---
HPI - General Adult General Chief complaint: ETOH/Substance Use Stated complaint: etoh Time Seen by Provider: 01/12/21 21:13 Source: patient and EMS Mode of arrival: ambulatory Limitations: no limitations History of Present Illness HPI narrative: Patient brought to the ED evaluation by EMS. Patient was sleeping on the ground and was awakened by EMS and patient got mad and became aggressive with EMS staff. Patient does not want help and does not want to be seen in the ER. Patient states he smoked PCP and then went to sleep. Patient denies falling to the ground. Patient denies drinking any alcohol. Patient does not want detox. Patient is not suicidal or homicidal. Patient does not want any crisis or medical evaluation. Patient denies any physical or psych complaints. Related Data Previous Rx's Medication Instructions Recorded cephalexin [Keflex] 500 mg PO QID 10 Days #40 cap 08/09/20 doxycycline hyclate 100 mg PO BID #20 cap 08/09/20 clonazepam [Klonopin] 1 mg PO BID #10 tab 11/30/20 olanzapine [Zyprexa] 5 mg PO BID #30 tab 11/30/20 Allergies Allergy/AdvReac Type Severity Reaction Status Date / Time aspirin Allergy Mild Unknown Verified 08/09/20 02:53 tramadol AdvReac Mild unknown Verified 08/09/20 02:53 Review of Systems Review of Systems: Yes all other systems are reviewed and are negative Constitutional: Constitutional: Reports as per HPI and Reports no additional constitutional complaints Eyes: Eyes: Reports as per HPI and Reports no additional eye complaints ENT: Reports system reviewed and no additional complaints, except as documented and Reports as per HPI Cardiovascular: Cardiovascular: Reports as per HPI and Reports no additional cardiovascular complaints Respiratory: Respiratory: Reports as per HPI and Reports no additional respiratory complaints Gastrointestinal: Gastrointestinal: Reports as per HPI and Reports no additional gastrointestinal complaints Genitourinary: Genitourinary: Reports no additional male genitourinary complaints and Reports as per HPI Musculoskeletal: Musculoskeletal: Reports no additional musculoskeletal complaints and Reports as per HPI Neurologic: Reports system reviewed and no additional complaints, except as documented and Reports as per HPI Psychiatric: Psychiatric: Reports no additional psychiatric complaints and Reports as per HPI PMFSH Past Medical History Medical History Anxiety Depression Psychosis Social History Social History Alcohol intake: never Substance Use Type: Crack/Cocaine and Heroin Advance Directives: No Advance Directives Information Provided: No Physical Exam Vital Signs: Vital Signs: Body Mass Index 22.9 Const: General: cooperative, healthy appearing, comfortable, no acute distress, well developed, alert and awake HENMT: Head: Yes normal to inspection, Yes No palpable skull fracture present, Yes normocephalic, Yes atraumatic, No abrasion, No Acrocyanosis present, No Obando's sign, No contusion, No cranial bruits, No hematoma, No laceration, No occipital foramen tenderness, No palpable skull fracture, No raccoon eyes, No scalp lesion, No scalp tenderness, No Temporal artery tenderness present and No periorbital ecchymosis Eyes: General: appearance normal, both eyes and all related structures Neck: Neck: Yes normal visual inspection, Yes full ROM, Yes no lymphadenopathy, Yes no meningeal signs, Yes trachea midline, Yes supple and No tender Chest: Chest palpation & inspection: normal inspection of the chest and normal palpation of entire chest wall Resp: Effort & Inspection: normal respiratory effort and able to speak in complete sentences Auscultation: clear to auscultation bilaterally Cardio: Jugular venous distension: no JVD Heart sounds: S1 normal heart sound present and S2 normal heart sound present GI: Inspection: Yes normal to inspection and No abdominal wall ecchymosis Palpation (GI): Soft to palpation, not firm, nontender, no guarding and not rigid : General: No CVA tenderness and Yes no CVA tenderness Back/Spine/Pelvis: Back: no CVA tenderness, No CVA tenderness and No back tenderness Skin: General skin exam: no rashes or lesions noted and elasticity normal Neuro: General: patient oriented x3, gait normal, no meningeal signs and CN's II-XI intact bilaterally Cranial nerves: Yes CN's II-XII intact bilaterally Extrem: General: Yes normal to inspection and Yes full ROM Psych: Appearance: grossly normal and well kempt Course Course Course Narrative: Patient did not want to stay. Patient does not want any of the medical staff. Patient denies any psych or physical complaints. Reevaluation(s) Reevaluation #1: Patient became angry and aggressive and will like to be disc harged. Patient does not want any medical intervention. Negative for any signs of trauma on patient. Patient was escorted out the hospital by security. Medical Decision Making MDM Narrative Medical decision making narrative: Substance abuse Discharge Plan Discharge Clinical Impression: Active substance abuse Patient Disposition: Elopement Prescriptions: No Action olanzapine [Zyprexa] 5 mg tablet 5 mg PO BID Qty: 30 RF: 0 clonazepam [Klonopin] 1 mg tablet 1 mg PO BID Qty: 10 RF: 0 doxycycline hyclate 100 mg capsule 100 mg PO BID Qty: 20 RF: 0 cephalexin [Keflex] 500 mg capsule 500 mg PO QID 10 Days Qty: 40 RF: 0 Interventions: ED Discharge Assessment Last Done: 01/12/21 21:19 Discharge Date/Time: 01/12/21 21:19
== END 2021-01-12 21:19 | disposition left against medical advice (07) ==
PROVIDERS: Emergency Provider Student in an Organized Health Care Education/Training Program
DX: F16.10 Hallucinogen abuse, uncomplicated (principal)
CPT/HCPCS: 99283

== ENCOUNTER 2025-07-16 12:56 | Inpatient (IN) | payer OTHER, SELFPAY ==
[2025-07-16 13:07] VITALS: BP 146/100; PULSE 88; RESP 16; TEMP 37.2; O2SAT 99
[2025-07-16 13:12] VITALS: BMI 21.5
--- NOTE | 2025-07-16 14:20 | PC.ADMIT ---
Pt on unit at 1305. Pt here on a CV. He is a 40 year old male, Vietnamese and Syrian speaking. Precipitating event: two months ago patient lost his grandmother and mother, with deaths back to back. Pt reports that they were his support system. He has been homeless x2 years and currently lives [address], however, he had been staying with them. Pt experienced worsening depression after their deaths and became suicidal with a plan to cut wrists. Pt currently denies feeling suicidal and reports that he will come to staff if he begins to feel this way while on M5. He currently drinks 1 pint of vodka/day and is using suboxone from the street. CIWA Q4 order placed and suboxone ordered. Toxicology screening also showed Fentanyl in system. Skin check showed no concerns. Pt was born with a paralyzed right arm. He does not have any additional physical deficits. Pt reports a recent 30-40 lb weight loss due to loss of appetite. Nutrition consult placed. Pt placed on 15 minute checks.
[2025-07-16 20:00] VITALS: BP 159/96; PULSE 102; RESP 16; TEMP 36.5; O2SAT 99
[2025-07-16 21:46] VITALS: BP 174/101
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
[2025-07-16 22:17] VITALS: BP 155/100; PULSE 107
--- NOTE | 2025-07-16 22:41 | PC.NURSE ---
Patient mentioned that he would like to have Ensure QID, due to his weight loss.
[2025-07-17 01:53] VITALS: BP 130/101; PULSE 104
[2025-07-17 04:20] VITALS: BP 141/89; PULSE 101; RESP 16
--- NOTE | 2025-07-17 06:47 | PC.NURSE ---
Spencer mentioned that Klonpin works better for his withdrawal; he also said he has a history of alcohol withdrawal seizures.
[2025-07-17 08:09] VITALS: BP 162/102; PULSE 89; RESP 18; TEMP 36.9; O2SAT 98
[2025-07-17 09:07] LABS: Alanine Aminotransferase 116 U/L (0-40); Albumin Level 4.3 g/dL (3.5-5.0); Alkaline Phosphatase 79 U/L (39-117); Anion Gap 11 (12-20); Aspartate Amino Transferase 67 U/L (5-37); Blood Urea Nitrogen 14 mg/dL (9-16); Calcium 9.3 mg/dL (8.4-10.2); Carbon Dioxide 27 mmol/L (22-29); Chloride 105 mmol/L (96-108); Cholesterol 99 mg/dL (<200); Creatinine Clr Calc Pharmacy 134.2; Estimated Glomerular Filt Rate > 60; HDL Cholesterol 48 mg/dL (>40); Potassium 4.6 mmol/L (3.3-5.1); Sodium 138 mmol/L (135-145); Total Protein 8.6 g/dL (6.5-8.0); Triglycerides 42 mg/dL (<150)
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
[2025-07-17 10:08] VITALS: BP 148/93
--- NOTE | 2025-07-17 10:24 | PC.NURSE ---
Pt offered and declined quitworks.
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
--- NOTE | 2025-07-17 15:19 | PC.NURSE ---
Pt signed 3 day notice up on 07/22. , JERRICA, UR aware.
[2025-07-17 20:31] VITALS: BP 147/86; PULSE 108; RESP 18; TEMP 37.2; O2SAT 97
[2025-07-18 07:00] VITALS: BMI 22.0
[2025-07-18 08:00] VITALS: BP 129/68; PULSE 80; RESP 18; TEMP 36.8; O2SAT 99
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
[2025-07-18 12:12] VITALS: BP 125/86
[2025-07-18 19:51] VITALS: BP 135/88; PULSE 102; TEMP 37.1; O2SAT 98
[2025-07-19 08:00] VITALS: BP 136/92; PULSE 112; RESP 18; TEMP 36.8; O2SAT 97
[2025-07-19 12:00] VITALS: BP 104/75
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
[2025-07-19 20:00] VITALS: BP 136/75; PULSE 96; RESP 97; TEMP 37.2; O2SAT 97
[2025-07-20 08:30] VITALS: BP 114/82; PULSE 116; TEMP 36.6; O2SAT 96
[2025-07-20 08:44] VITALS: PULSE 94
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
--- NOTE | 2025-07-20 09:42 | PC.NURSE ---
Signed 3 day on 07/20 to be up on 07/24
[2025-07-20 13:07] VITALS: BP 133/81; PULSE 106
--- NOTE | 2025-07-20 14:45 | PC.NURSE ---
Pt retracted 3 day after speaking with the doctor.
[2025-07-20 19:59] VITALS: BP 121/74; PULSE 91; RESP 15; TEMP 36.6; O2SAT 98
[2025-07-21 08:01] VITALS: BP 136/78; PULSE 97; TEMP 36.6; O2SAT 96
[2025-07-21 13:40] VITALS: BP 127/89
--- NOTE | 2025-07-21 15:51 | MHC.RECOVRN ---
Met with pt. in 507 following referral received for [facility] for ETOH. Information received for this assessment from chart review and pt. interview. JEAN-PIERRE/Treatment History: Pt has a documented/reported use of ETOH, Suboxone (off the street) and Fentanyl. Pt started drinking ETOH 10 years ago. He is currently drinking 1pt vodka/daily. Last use 07/16. No periods of abstinence reported. Pt used 2 bundles IV heroin prior to arrival (07/15) but did not discuss history of fentanyl use. He was also buying suboxone on the street. No other information obtained as pt already receiving suboxone for OUD at effective dose and denies ETOH being an issue. Intervention: Discussed safe use including obtaining suboxone at clinic and pt. choose clinic for f/u. Offered education on AUD/ANKUR. Pt declined intervention or f/u re: this. Plan: ACS/SW to assist pt. with f/u appt to MAT clinic. Pt has chosen [facility] on [address] [place] [address] . Would like to also get psych services there if possible. SW to F/U
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
[2025-07-21 19:58] VITALS: BP 112/73; PULSE 90; RESP 15; TEMP 37; O2SAT 99
[2025-07-22 08:00] VITALS: BP 131/93; PULSE 101; RESP 16; TEMP 36.6; O2SAT 97
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
[2025-07-22 13:22] VITALS: BP 126/71
[2025-07-22 19:48] VITALS: BP 113/63; PULSE 71; TEMP 36.5; O2SAT 97
[2025-07-23 08:00] VITALS: BP 109/79; PULSE 88; RESP 16; TEMP 36.7; O2SAT 97
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
[2025-07-23 12:01] VITALS: BP 117/76
[2025-07-24 08:00] VITALS: BP 118/76; PULSE 71; RESP 18; TEMP 36.6; O2SAT 98
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
[2025-07-24 12:32] VITALS: BP 124/79
[2025-07-24 20:10] VITALS: BP 130/58; PULSE 96; RESP 16; TEMP 37.1; O2SAT 97
[2025-07-25 08:00] VITALS: BP 120/74; PULSE 66; RESP 16; TEMP 37.2; O2SAT 98
[2025-07-25 08:49] VITALS: BP 120/74
--- NOTE | 2025-07-25 08:53 | PC.NURSE ---
Pt refused suboxone. Provider aware.
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
== END 2025-07-25 11:28 | disposition home or self-care (01) | DRG 755 ==
PROVIDERS: Admitting Provider Psychiatry & Neurology Psychiatry; Visit Provider Psychiatry & Neurology Psychiatry
DX: F43.11 Post-traumatic stress disorder, acute (principal); F33.2 Major depressive disorder, recurrent severe without psychotic features; F11.20 Opioid dependence, uncomplicated; F10.10 Alcohol abuse, uncomplicated; F41.9 Anxiety disorder, unspecified; F43.12 Post-traumatic stress disorder, chronic; F19.90 Other psychoactive substance use, unspecified, uncomplicated; F17.210 Nicotine dependence, cigarettes, uncomplicated; Z71.6 Tobacco abuse counseling; Z59.02 Unsheltered homelessness; Z79.899 Other long term (current) drug therapy
CPT/HCPCS: 36415; 80053; 80061; 83036; 84443

== ENCOUNTER → 2025-07-16 12:56 | Outpatient (BNV) | payer OTHER, SELFPAY | PROVIDERS: Admitting Provider Psychiatry & Neurology Psychiatry; Visit Provider Nurse Practitioner Family | DX: F33.2 Major depressive disorder, recurrent severe without psychotic features (principal); F43.11 Post-traumatic stress disorder, acute; F41.9 Anxiety disorder, unspecified; F11.90 Opioid use, unspecified, uncomplicated; F10.90 Alcohol use, unspecified, uncomplicated; Z59.00 Homelessness unspecified | CPT/HCPCS: 99231; 99232 ==

== ENCOUNTER → 2025-07-16 12:56 | Outpatient (BNV) | payer MEDICAID, SELFPAY | PROVIDERS: Admitting Provider Psychiatry & Neurology Psychiatry; Visit Provider Nurse Practitioner Family | DX: F32.9 Major depressive disorder, single episode, unspecified (principal) | CPT/HCPCS: 99221 ==